=== PATIENT | female | born 1995 | race Caucasian/White ===

== ENCOUNTER 2019-10-16 17:10 | Emergency (ER) | payer OTHER ==
[~2019-10-16] VITALS: Ht 165.1 cm; Wt 56.7 kg
[2019-10-16] MEDS ORDERED: TRI-LINYAH1 EACH PO (17:28)
[2019-10-16] MEDS ORDERED: ALLEGRA ALLERG180 MG PO (18:47)
[2019-10-16] MEDS ORDERED: MAXITROL EYE DRO5 ML OP (18:47)
[2019-10-16] MEDS ORDERED: DUI500 PO (18:50)
[2019-10-16] MEDS ORDERED: DYMISTA NASAL S23 GM NASAL (18:50)
== END 2019-10-16 19:13 | disposition home or self-care (01) ==
LOC: ER 17:10
DX: H10.12 Acute atopic conjunctivitis, left eye (principal); J30.2 Other seasonal allergic rhinitis

== ENCOUNTER 2019-12-19 23:50 | Emergency (ER) | payer OTHER ==
[~2019-12-19] VITALS: Ht 165.1 cm; Wt 54.4 kg
[~2019-12-19 23:50] MED LIST: ALLEGRA ALLERG180 MG PO; DUI500 PO; DYMISTA NASAL S23 GM NASAL; MAXITROL EYE DRO5 ML OP; TRI-LINYAH1 EACH PO
[2019-12-20] MEDS ORDERED: KETO10TA2 PO (02:26)
== END 2019-12-20 02:36 | disposition home or self-care (01) ==
LOC: ER 23:50
DX: R07.89 Other chest pain (principal)